=== PATIENT | male | born 1950 | race Caucasian/White ===

== ENCOUNTER 2018-11-23 05:10 | Observation (INO) | payer MEDICARE ==
[2018-11-23] VITALS (12 sets, daily range): BP systolic 114–143; BP diastolic 37–92; PULSE 74–108; TEMP 97.2–99.1
[~2018-11-23] VITALS: Ht 175.3 cm; Wt 116.5 kg
[2018-11-23] MEDS ORDERED: ASPIRIN 81M81 MG/TA2 PO (05:39)
[2018-11-23] MEDS ORDERED: PRINIVIL10 MG PO (05:40)
[2018-11-23] MEDS ORDERED: LEVEMIR100 U/ML SQ (05:40)
[2018-11-23] MEDS ORDERED: ALTOPREV40 MG PO (05:40)
[2018-11-23] MEDS ORDERED: FORT1000TA PO (05:41)
[2018-11-23] MEDS ORDERED: MACROBID 1100 MG/CAP PO (05:42)
--- NOTE | 2018-11-23 06:17 | NUR ---
Patient's SpO2 on admission read 85% with patient resting on side of bed. Checked with both finger and ear probe. Does not rise with deep breaths. Encouraged patient to rest for 5 minutes. SpO2 after resting and while lying down continues to read 85-87% on room air. Patient denies wearing any oxygen at home. Lung sounds are diminished and wheezes heard in all 4 lobes. Placed on 2L oxygen per nasal cannula. Oxygen rises to 91% on 2L nasal cannula. Notified Dr. Tilley via phone call at [phone] and he will evaluate patient at the bedside. Will continue to monitor.
--- NOTE | 2018-11-23 09:30 | NUR ---
Patient arrived to floor via bed. Denies pain. Is numb from waist down due to the spinal. No complaints of nausea. Patient is very drowsy. Slowed CBI, it is very clear without clots. Louie Ortiz RN notified that patient is here. Oriented patient and his to the room. Explained how to order food. Patient is resting comfortablly at this time. No other changes at this time. Call light within reach.
--- NOTE | 2018-11-23 09:43 | NUR ---
Pt and his partner were instructed on Mitomycin instillation process, chemotherapy precautions, and repositioning importance. Pt had already signed consent for mitomycin instillation with operative consent. Printed information was provided for their review as well. Pharmacy will be preparing the drug and I will administer as soon as it arrives on unit.
--- NOTE | 2018-11-23 10:36 | NUR ---
Mitomycin verified correct with nurse Clemente Hazel LPN by comparing printed label with written order on chart. Pt identity again verified at bedside. Fitzgerald emptied by Sharmaine Hazel LPN and bag exchanged. Fitzgerald catheter clamped and mitomycin instilled observing chemotherapy precautions. Pt denies any feeling below waist due to spinal so staff will help reposition q 15 minutes for the 1 hour dwell time. Chemotherapy signage posted.
--- NOTE | 2018-11-23 12:17 | NUR ---
Pt completed dwell time at 1130 and madrid catheter was unclamped and drained (200ml) and then bladder was flushed with CBI (200 ml). Urine was purple/pink with no observed clots. Mitomycin/urine was drained into drainage bag and after flushing, the larger madrid bag was attached and the mitomycin bag was disposed of observing chemotherapy precautions. Pt denied discomfort and is drinking water at this time. Report to James Sweeney LPN.
--- NOTE | 2018-11-23 18:00 | NUR ---
Patient has been doing well this afternoon. Minimal complaints of pain, only complaint is of burning from the catheter. Urine is light pink with a few clots. His spinal wore off and he has been up to the bathroom once. No complaints of nausea. Increased CBI a little because his urine was a little darker pink. No other changes at this time. Call light within reach.
--- NOTE | 2018-11-23 21:49 | NUR ---
PT IN BED WITH HOB AT 60 DEGREE ANGLE. DENIES PAIN, BUT ASSISTED WITH REPOSITIONING IN BED. PT ADVISES THAT HE SLEEPS IN RECLINER AT HOME. PT REFUSES TO GET IN RECLINER HERE, SO REPOSITIONED AND PUT PILLOW UNDER KNEES. NO NEEDS AT THIS TIME. CBI STILL GOING. CALL LIGHT WITHIN REACH.
--- NOTE | 2018-11-24 00:57 | NUR ---
PT SLEEP/RESTING WELL WITH NO S/S OF PAIN OR DISCOMFORT. RESP EVEN AND UNLABORED, CALL LIGHT WITHIN REACH AND CBI STILL GOING.
[2018-11-24 04:36] VITALS: BP 129/78; PULSE 105; TEMP 99.1
--- NOTE | 2018-11-24 04:53 | NUR ---
PT ADVISED THAT HE MUST HAVE BEEN TALKING IN HIS SLEEP BECAUSE HIS MOUTH WAS SO DRY. BRAKE LINING CURER CAME IN TO GIVE HIM WATER 3X, BUT PT DID NOT REMEMBER THAT SHE CAME IN THE FIRST 2X TO GIVE HIM WATER. PT DENIES PAIN OR COMFORT. CALL LIGHT WITHIN REACH.
--- NOTE | 2018-11-24 07:55 | NUR ---
PT TAKEN TO RA. STATES HE DOES NOT WALK WELL. SPO2 AT REST DROPPED TO 85% AT THIS TIME. PT PLACED BACK ON O2.
--- NOTE | 2018-11-24 08:23 | NUR ---
Assessment completed, alert/oriented, vital signs stable, reports pain is tolerable / percocet given at 0630, doing prime and pull of his 3-way madrid this morning per urology order, abdomen soft and non-tender, BS +, patient not wanting breakfast at this time, heart RRR, lungs CTA, Chemo precauations in place, hoping to be discharged later today,
[2018-11-24 08:45] VITALS: BP 124/68; PULSE 107; TEMP 98.4
[2018-11-24 11:12] VITALS: BP 111/80; PULSE 101; TEMP 98
[2018-11-24] MEDS ORDERED: NICODERM C14 MG/PATC TD (11:53)
[2018-11-24] MEDS ORDERED: PROVENTIL0.09 MG/A1 IH (12:50)
--- NOTE | 2018-11-24 14:04 | NUR ---
Plan to return home with as care concerns. Marija Mcginnis . Client shares that his can not be reached until after 2:30 pm duet o her job. Patient reports that he uses his cane daily for mobility and residing in [facility]. Patient uses [facility] for RX. 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 Client reports PCP Alexi Cutting. Patient declined home health care. SW was contacted to assist with O2 setup. SW spoke with client and client chose [facility] or [facility] for o2 needs. [facility] can not supply until Monday. Diane stated that it takes 4 hours to setup hospital O2 SW faxed order to Diane, awaitng assistant field hockey coach.
[2018-11-24 15:20] VITALS: BP 109/55; PULSE 102; TEMP 98.4
--- NOTE | 2018-11-24 18:00 | NUR ---
Patient comes to nurses desk stating he is no longer waiting for [facility] to deliver his oxygen, as he has waited three hours already. Explained to patient need for continous oxygen, patient voices understanding and will await for nursing staff to call Diane. Phone call placed to Diane and state they will deliver oxygen to patients house this evening and not bring any to the hospital. Patients wifes phone number given to Diane for notification of delivery time. Patient again notified that Diane will be calling them to deliver oxygen this evening.
== END 2018-11-24 18:35 | disposition home or self-care (01) ==
LOC: SDCO 05:10 → SURG 08:29 → SDCO 09:17 → SURG 09:46
PROVIDERS: ADMIT Urology
DX: C67.8 Malignant neoplasm of overlapping sites of bladder (principal); R31.0 Gross hematuria; E11.9 Type 2 diabetes mellitus without complications; I10 Essential (primary) hypertension; E78.2 Mixed hyperlipidemia; M19.90 Unspecified osteoarthritis, unspecified site; M81.0 Age-related osteoporosis without current pathological fracture; F17.210 Nicotine dependence, cigarettes, uncomplicated; E66.01 Morbid (severe) obesity due to excess calories; Z85.828 Personal history of other malignant neoplasm of skin; Z79.82 Long term (current) use of aspirin; Z79.4 Long term (current) use of insulin; Z83.3 Family history of diabetes mellitus; Z82.49 Family history of ischemic heart disease and other diseases of the circulatory system; Z80.3 Family history of malignant neoplasm of breast; Z82.3 Family history of stroke; Z80.6 Family history of leukemia
CPT/HCPCS: 99222; 99233-AI; C1769; C2617; G0378; G0379; J0690; J1815; J2250; J2405; J2704; J2765; J3010; J7030; J9280; Q9967

== ENCOUNTER 2019-03-25 11:45 | Day surgery (SDC) | payer MEDICARE ==
[~2019-03-25] VITALS: Ht 175.3 cm; Wt 117.6 kg
[2019-03-25] VITALS (7 sets, daily range): BP systolic 119–137; BP diastolic 67–86; PULSE 74–95; TEMP 97.9–98.1
[~2019-03-25 11:45] MED LIST: ALTOPREV40 MG PO; ASPIRIN 81M81 MG/TA2 PO; FORT1000TA PO; LEVEMIR100 U/ML SQ; MACROBID 1100 MG/CAP PO; NICODERM C14 MG/PATC TD; PRINIVIL10 MG PO; PROVENTIL0.09 MG/A1 IH
[2019-03-25] MEDS ORDERED: ZESTRIL 5MG5 MG PO (12:53)
[2019-03-25] MEDS ORDERED: MACRODANTIN100 PO (12:53)
--- NOTE | 2019-03-25 12:56 | NUR ---
TO RM 7 AT 1213- CALL LIGHT IN REACH AT BEDSIDE.
--- NOTE | 2019-03-25 16:23 | NUR ---
Pt arrived in room from PACU, primary nurse assessment completed. Mitomycin Verified correct at bedside with Neena Calvo RN by comparing printed label with completed mitomycin orders. Instruction to pt and again reviewed with his when she arrived at bedside. Fitzgerald catheter clamped. Minimal urine present in tubing. Using appropriate chemotherapy PPE, mitomycin instilled into bladder at 1614. Pt tolerated well. Currently on back and will turn to side at 1630. Printed instructions given to his who verbalized understanding and verifies he has had this treatment done in November also. Appropriate signage at door, chemo cart at entrance to room with yellow container. Report to primary nurse.
--- NOTE | 2019-03-25 16:42 | NUR ---
at bedside. Reminded to turn and turned to right side with minimal assist. Reports is doing well.
--- NOTE | 2019-03-25 17:33 | NUR ---
Verified with primary nurse that madrid is to be discontinued after mitomycin is drained. She called Dr Tilley and verified. Mitomycin drained from bladder after 1 hour dwell time for total of urine and mitomycin of 150ml of purple urine. No blood or clots were visible to naked eye. Wearing appropriate PPE, Madrid catheter balloon emptied of 10ml liquid and removed without difficulty. Pericare provided. Report to Neena Calvo RN. Precaution signage remains in place and was reviewed with nurse and aide. Home instructions have already been given to .
--- NOTE | 2019-03-25 19:33 | NUR ---
Patient ambulated to the desk at 1925 and stated he already pulled his IV out and was ready to leave. Stated he was upset because his discharge shouldn't have taken this long. Educated patient on the importance of completing discharge paperwork. at side. Discharge summary, education, and prescriptions sent with patient. Staff ambulated patient to personal vehicle at 1933.
== END 2019-03-25 19:33 | disposition home or self-care (01) ==
LOC: SDCO 11:45 → SURG 16:17 → SDCO 19:33
DX: C67.6 Malignant neoplasm of ureteric orifice (principal); E11.9 Type 2 diabetes mellitus without complications; E78.2 Mixed hyperlipidemia; M81.0 Age-related osteoporosis without current pathological fracture; M19.90 Unspecified osteoarthritis, unspecified site; Z85.828 Personal history of other malignant neoplasm of skin; Z79.4 Long term (current) use of insulin; Z79.899 Other long term (current) drug therapy; Z79.82 Long term (current) use of aspirin; F17.210 Nicotine dependence, cigarettes, uncomplicated; Z82.49 Family history of ischemic heart disease and other diseases of the circulatory system; Z83.3 Family history of diabetes mellitus; Z82.3 Family history of stroke; Z80.6 Family history of leukemia; Z80.3 Family history of malignant neoplasm of breast
CPT/HCPCS: OP; C1769; C2617; J0690; J1100; J1885; J2405; J2704; J3010; J9280

== ENCOUNTER 2019-08-08 10:37 | Day surgery (SDC) | payer MEDICARE ==
[2019-08-08] VITALS (9 sets, daily range): BP systolic 106–135; BP diastolic 54–84; PULSE 73–97; TEMP 97.6–98.2
[~2019-08-08] VITALS: Ht 175.3 cm; Wt 116.7 kg
[~2019-08-08 10:37] MED LIST changes: +MACRODANTIN100 PO; +ZESTRIL 5MG5 MG PO
--- NOTE | 2019-08-08 12:47 | NUR ---
Patient to the OR with LAW ENFORCEMENT OFFICER Divya at this time. Personal belonging bag x1 labeled with patient sticker and taken to PACU.
--- NOTE | 2019-08-08 14:49 | NUR ---
Pt has returned to room with already in room. He has had mitomycin twice before and understands what to do he tells me. He has signed a consent for mitomycin instillation on surgical consent and mitomycin order set is on the chart and has been signed by physician, Dr Tilley. Fitzgerald catheter was drained of clear pale yellow urine and then clamped. Mitomycin was verified earlier with Bridgette Aguirre RN by comparing printed label to written order. PPE was used, signage was posted and mitomycin was intilled into the bladder at 1440. Pt will turn to side at 1455 and is aware of need to do this. Currently he is drinking a cup of coffee per his request. He denies questions and his only concern is that he be able to discharge around 4pm or as soon as possible after that. Post mitomycin instructions sheet was provided and reviewed with .
--- NOTE | 2019-08-08 15:59 | NUR ---
Mitomycin has remained in bladder x1 hour, urine drained was light purple but without visible blood or clots. PPE utilized per protocal and 250ml of urine in madrid bag discarded in chemotherapy waste container with other PPE after being bagged. Pt tolerated the dwell time without issue and now is anxious to go home. Cleansing wipes provided for pt use when dressing if he needs them. Again reviewed importance of following chemotherapy precautions at home for 24 hours from now and pt and verbalize understanding. Pt preparing for discharge.
--- NOTE | 2019-08-08 16:10 | NUR ---
PATIENT ARRIVED TO THE FLOOR FROM PACU @ 1415. A/O X 4. DENIES C/O PAIN OR DISCOMFORT. SEE NOTES FROM ONCOLOGY NURSE FOR CHEMO MEDCICATION INSTILLED IN BLADDER THROUGH LOWRY. WHOLE PROCESS MANAGED BY CHARLEE SCHWARTZ. FVRussell WNL. COFFEE REQUESTED AND PROVIDED. ORDER RECEIVED THAT PATIENT MAY DC AFTER DC CRITERIA MEET. PATIENT REQUESTING TO LEAVE CLOSE TO 1600 POSIBLE. 1600: ATTEMPTED TO CALL ATTENDING SURGEON DR. RENEE THERE IS NO FOLLOW UP APPOINTMENT SCHEDULED. UNABLE TO REACH. PATIENT NOT WANTING TO WAIT STATES "I CAN ANA AND SCHEDULE AN APPOINTMENT MYSELF TOMORROW OR MONDAY". DC TO HOME @ 1608 VIA POV ACCOMPANIED BY EXTENSION COURSE COUNSELOR. PRINTED DC INSTRUCTIONS REVIEWED WITH PATIENT AND . BOTH DENY QUESTIONS OR CONCERNS AFTER REVIEW.
== END 2019-08-08 16:08 ==
LOC: SDCO 10:37 → JCC 14:48 → SDCO 16:08
DX: C67.8 Malignant neoplasm of overlapping sites of bladder (principal); E11.9 Type 2 diabetes mellitus without complications; I10 Essential (primary) hypertension; E78.2 Mixed hyperlipidemia; E66.9 Obesity, unspecified; M19.90 Unspecified osteoarthritis, unspecified site; M81.0 Age-related osteoporosis without current pathological fracture; Z85.828 Personal history of other malignant neoplasm of skin; Z79.82 Long term (current) use of aspirin; Z79.4 Long term (current) use of insulin; F17.210 Nicotine dependence, cigarettes, uncomplicated; Z80.3 Family history of malignant neoplasm of breast; Z83.3 Family history of diabetes mellitus; Z82.49 Family history of ischemic heart disease and other diseases of the circulatory system; Z80.6 Family history of leukemia; Z82.3 Family history of stroke
CPT/HCPCS: OP; C1769; C1894; C2617; J0690; J2405; J2704; J3010; J7030; J9280; Q9967

== ENCOUNTER 2021-03-05 07:23 | Day surgery (SDC) | payer MEDICARE ==
[~2021-03-05] VITALS: Ht 177.8 cm; Wt 117.9 kg
[2021-03-05] MEDS ORDERED: AMARYL1 MG PO (07:46)
[2021-03-05 07:47] VITALS: BP 147/70; PULSE 110; TEMP 97.4
--- NOTE | 2021-03-05 08:15 | NUR ---
Patient's blood glucose is checked prior to surgery. It is 251. This result is called to Dimitrios Gunderson CRNA. He orders 5 units of Regular Insulin SQ once.
--- NOTE | 2021-03-05 08:21 | NUR ---
5 UNITS OF Novolin R insulin SQ is drawn up and confirmed with Kiesha randolph RN prior to administration.
[2021-03-05 10:40] VITALS: BP 119/76; PULSE 88; TEMP 97.8
--- NOTE | 2021-03-05 10:40 | NUR ---
Patient [place] to [facility] [place] [facility] [place] cart, accompanied by PROGRAM MANAGER Tere. He is sitting up in bed, alert and oriented. He denies pain or nausea. Monitoring is applied - VSS and WNL on room air. His is at the bedside. He states "I'm ready to go home". Discharge criteria is discussed and he is agreeable. He is offered and receives coffee and toast. Will continue to monitor.
[2021-03-05 10:55] VITALS: BP 110/74; PULSE 88
[2021-03-05 11:10] VITALS: BP 105/71; PULSE 82
--- NOTE | 2021-03-05 11:13 | NUR ---
Patient tolerating PO well. He has ate/drank food provided. He ambulates to the restroom independently with standby assist and steady gait. He voids pink urine and returns to room.
--- NOTE | 2021-03-05 11:33 | NUR ---
Patient has met discharge criteria. PIV is removed with catheter intact and hemostasis achieved. Discharge instructions are discussed. He denies any questions and verbalizes understanding. He changes to his clothing independently. He is escorted to the exit via wheelchair and discharged to home to the care of his , who drives him home in private vehicle.
== END 2021-03-05 11:33 | disposition home or self-care (01) ==
LOC: SDCO 07:23
DX: C67.2 Malignant neoplasm of lateral wall of bladder (principal); I10 Essential (primary) hypertension; E11.9 Type 2 diabetes mellitus without complications; E78.2 Mixed hyperlipidemia; F17.210 Nicotine dependence, cigarettes, uncomplicated; E66.9 Obesity, unspecified; Z68.41 Body mass index [BMI] 40.0-44.9, adult; Z20.822 Contact with and (suspected) exposure to COVID-19; Z79.84 Long term (current) use of oral hypoglycemic drugs; Z79.899 Other long term (current) drug therapy; Z79.82 Long term (current) use of aspirin; Z85.828 Personal history of other malignant neoplasm of skin; Z80.3 Family history of malignant neoplasm of breast; Z80.6 Family history of leukemia
CPT/HCPCS: J0690; J1100; J1815; J1885; J2405; J2704; J3010; J7030; Q9967

== ENCOUNTER 2021-04-08 11:29 | Day surgery (SDC) | payer MEDICARE ==
[~2021-04-08] VITALS: Ht 175.3 cm; Wt 118.3 kg
[~2021-04-08 11:29] MED LIST changes: +AMARYL1 MG PO
[2021-04-08 12:22] VITALS: BP 137/90; PULSE 98; TEMP 97.7
[2021-04-08] MEDS ORDERED: AMARYL 2MG T2 MG/TAB PO (12:29)
[2021-04-08 15:02] VITALS: TEMP 98.5
[2021-04-08 15:15] VITALS: BP 129/55; PULSE 81
--- NOTE | 2021-04-08 15:15 | NUR ---
Patient returns to room 7 per cart from PACU accompanied by Tamia SCHWARTZ and is awake and alert. IV fluids infusing and site is free of redness or swelling. Temp 97.7 and sats 95% on 1L per nasal cannula. Fitzgerald catheter connected to leg bag with yellow urine returning. Patient states that he is ready to go home but agrees to eat pudding and drink coffee prior to discharge. Denies pain or nausea.
[2021-04-08 15:30] VITALS: BP 123/65; PULSE 81
--- NOTE | 2021-04-08 15:30 | NUR ---
Oxygen removed and continues to deny pain or nausea. Leg bag continues to drain yellow urine. Tolerated snack without nausea.
--- NOTE | 2021-04-08 15:40 | NUR ---
Leg bag drained of 700cc's yellow urine. Given catheter care instructions and provided dependent drainage bag for night time use and will wear leg bag at night. Provided alcohol wipes to keep tips of leg bag and dependent drainage bag clean. Informed that the office will call with follow up appointment date and time. Provided office number for questions and concerns.
--- NOTE | 2021-04-08 15:50 | NUR ---
IV was discontinued and patient dressed self. Dismissal instructions signed.
--- NOTE | 2021-04-08 16:01 | NUR ---
Patient dismissed to home driven by spouse and taken to the front door per wheelchair and assisted into vehicle by this RN with all instructions in hand.
== END 2021-04-08 16:01 | disposition home or self-care (01) ==
LOC: SDCO 11:29
DX: C67.2 Malignant neoplasm of lateral wall of bladder (principal); I10 Essential (primary) hypertension; E78.2 Mixed hyperlipidemia; E66.9 Obesity, unspecified; Z68.39 Body mass index [BMI] 39.0-39.9, adult; E11.9 Type 2 diabetes mellitus without complications; F17.210 Nicotine dependence, cigarettes, uncomplicated; Z85.828 Personal history of other malignant neoplasm of skin; Z79.82 Long term (current) use of aspirin; Z79.84 Long term (current) use of oral hypoglycemic drugs; Z79.899 Other long term (current) drug therapy
CPT/HCPCS: J0690; J2704; J3010; J7030

== ENCOUNTER 2024-06-04 10:53 | Day surgery (SDC) | payer MEDICARE, MEDICAID ==
[~2024-06-04] VITALS: Ht 175.3 cm; Wt 116.7 kg
[~2024-06-04 10:53] MED LIST changes: +AMARYL 2MG T2 MG/TAB PO; +LR 1,000 ML IV SCH
[2024-06-04] MEDS ORDERED: fentaNYL 50 MCG/ML 2 ML VIAL ONE (13:39)
[2024-06-04] MEDS ORDERED: Lidocaine PF 2% (20 MG/ML) 5 ML VIAL ONE (13:39)
[2024-06-04] MEDS ORDERED: Ondansetron 4 MG/2 ML VIAL ONE (13:39)
[2024-06-04] MEDS ORDERED: Ondansetron 4 MG/2 ML VIAL IV PRN (14:00)
[2024-06-04] MEDS ORDERED: HYDROmorphone 1 MG/1 ML SYRINGE [PACU/SDC ONLY] IV PRN (14:00)
[2024-06-04] MEDS ORDERED: fentaNYL 50 MCG/ML 1 ML SYRINGE/VIAL [PACU/SDC ONLY] IV PRN (14:00)
[2024-06-04 14:18] VITALS: BP 135/88; PULSE 92; TEMP 98.6
[2024-06-04] MEDS ORDERED: Lidocaine 2% (20 MG/ML) 20 ML UROJET UR ONE (14:22)
[2024-06-04] MEDS ORDERED: Iohexol 300 - 10 ML VIAL URETER-B ONE (14:22)
[2024-06-04] MEDS ORDERED: PRIL40 PO (14:23)
[2024-06-04] MEDS ORDERED: NEURONTIN100 MG/CAP PO (14:24)
[2024-06-04] MEDS ORDERED: KAPSPARGO SPRIN25 MG PO (14:25)
[2024-06-04] MEDS ORDERED: MIRAPEX0.25 MG PO (14:26)
[2024-06-04] MEDS ORDERED: NOVOLOG 100U100 U/M1 SQ (14:27)
[2024-06-04] MEDS ORDERED: Hyoscyamine 0.125 MG Sublingual TAB SL PRN (15:00)
[2024-06-04] MEDS ORDERED: oxyCODONE/Acetaminophen 5-325 MG TAB PO PRN (15:00)
[2024-06-04 16:00] VITALS: BP 180/98; PULSE 80; TEMP 97.5
[2024-06-04 16:15] VITALS: BP 165/81; PULSE 84
[2024-06-04 16:30] VITALS: BP 168/90; PULSE 80
--- NOTE | 2024-06-04 16:45 | NUR ---
1600 RETURNS TO ROOM 1 PER CART WITH HOB ELEVATED 50 DEGREES. AWAKE, ALERT. RESP UNLABORED. ABD SOFT. DENIES PAIN OR URINARY URGENCY. VITAL SIGNS OBTAINED. CALL LIGHT AT SIDE. IN ROOM 1615 HOB ELEVATED 70 DEGREES. VOIDS PER URINAL. URINE PINK. NO CLOTS OBSERVED. TOLERATES PO WATER AND SODA WITHOUT NAUSEA 1625 DISCHARGE INSTRUCTIONS REVIEWED. PATIENT VERBALIZES UNDERSTANDING. COPY PROVIDED IN DISCHARGE FOLDER 1638 SITS ON EDGE OF BED. DRESSES WITH ASSIST FROM
== END 2024-06-04 16:48 | disposition home or self-care (01) ==
LOC: SDCO 10:53
DX: C67.0 Malignant neoplasm of trigone of bladder (principal); Q62.8 Other congenital malformations of ureter; E11.9 Type 2 diabetes mellitus without complications; E66.9 Obesity, unspecified; F17.210 Nicotine dependence, cigarettes, uncomplicated; Z79.84 Long term (current) use of oral hypoglycemic drugs; Z85.828 Personal history of other malignant neoplasm of skin; Z68.37 Body mass index [BMI] 37.0-37.9, adult
CPT/HCPCS: C1769; C2617; J0690; J1920; J2405; J2704; J3010; J7120; Q9967

== ENCOUNTER 2024-08-16 09:00 | Day surgery (SDC) | payer MEDICARE, MEDICAID ==
[~2024-08-16] VITALS: Ht 175.3 cm; Wt 118.6 kg
[~2024-08-16 09:00] MED LIST changes: +KAPSPARGO SPRIN25 MG PO; +MIRAPEX0.25 MG PO; +NEURONTIN100 MG/CAP PO; +NOVOLOG 100U100 U/M1 SQ; +PRIL40 PO
[2024-08-16 10:08] VITALS: BP 152/84; PULSE 93; TEMP 97.8
[2024-08-16] MEDS ORDERED: TOPROL XL 25MG25 MG PO (10:21)
[2024-08-16] MEDS ORDERED: NOVOLOG 100U100 U/M1 SQ (10:22)
[2024-08-16] MEDS ORDERED: Ondansetron 4 MG/2 ML VIAL ONE (11:24)
[2024-08-16] MEDS ORDERED: Lidocaine PF 2% (20 MG/ML) 5 ML VIAL ONE (11:24)
[2024-08-16] MEDS ORDERED: Lidocaine 2% (20 MG/ML) 20 ML UROJET UR ONE (11:49)
[2024-08-16] MEDS ORDERED: fentaNYL 50 MCG/ML 2 ML VIAL ONE (11:50)
[2024-08-16] MEDS ORDERED: Hyoscyamine 0.125 MG Sublingual TAB SL PRN (12:15)
[2024-08-16] MEDS ORDERED: oxyCODONE/Acetaminophen 5-325 MG TAB PO PRN (12:30)
[2024-08-16] MEDS ORDERED: fentaNYL 50 MCG/ML 1 ML SYRINGE/VIAL [PACU/SDC ONLY] IV PRN (12:45)
[2024-08-16] MEDS ORDERED: HYDROmorphone 1 MG/1 ML SYRINGE [PACU/SDC ONLY] IV PRN (12:45)
[2024-08-16] MEDS ORDERED: droPERidol 2.5 MG/ML 2 ML VIAL IV PRN (12:45)
[2024-08-16] MEDS ORDERED: Ondansetron 4 MG/2 ML VIAL IV PRN (12:45)
[2024-08-16] MEDS ORDERED: hydrALAZINE 20 MG/ML 1 ML VIAL IV PRN (12:45)
[2024-08-16 12:47] VITALS: BP 135/91; PULSE 79; TEMP 97.8
[2024-08-16 13:00] VITALS: BP 119/68; PULSE 78
[2024-08-16 13:15] VITALS: BP 110/67; PULSE 81
[2024-08-16 13:49] VITALS: BP 131/77; PULSE 81; TEMP 97.4
--- NOTE | 2024-08-16 13:50 | NUR ---
Pt to [facility] [place] [facility] via cart at 1247. Bedside handoff received from LANA Das. at bedside. VSS. Oxygen on at 1L/NC. Cough and deep breathing encouraged. [place] juice and cheese stick given. Call light within reach, Cart in low position. 1421- Discharge instructions and education given to patient and . Message left with Dr. Tilley's office regarding follow up appt, they will call patient with appt time. 1325- Pt getting dressed at this time, voids 200ml of pink tinged urine. 1335- IV site removed. Pt down to spouse car via w/c at this time. Accompanied by this nurse. Denies any complaints at time of discharge. Belongings sent with patient.
== END 2024-08-16 13:35 | disposition home or self-care (01) ==
LOC: SDCO 09:00
DX: C67.8 Malignant neoplasm of overlapping sites of bladder (principal); C65.1 Malignant neoplasm of right renal pelvis; E66.9 Obesity, unspecified; F17.210 Nicotine dependence, cigarettes, uncomplicated; Z85.828 Personal history of other malignant neoplasm of skin; Z46.6 Encounter for fitting and adjustment of urinary device
CPT/HCPCS: C1769; J0690; J2405; J2704; J3010; J7120